=== PATIENT | female | born 1990 | race Caucasian/White ===

== ENCOUNTER 2017-05-07 09:30 | Inpatient (IN) | payer OTHER ==
[~2017-05-07] VITALS: Ht 149.9 cm; Wt 80.7 kg
[2017-05-13] MEDS ORDERED: PRENATAL TABLE1 EAC1 PO (07:05)
== END 2017-05-15 16:02 | disposition home or self-care (01) | DRG 766 ==
LOC: LDR 05-13 05:13 → O/R 05-13 17:50 → SURG-SUITE 05-13 18:52 → OB/GYN 05-20 09:30
PROVIDERS: Obstetrics & Gynecology
PROC: 4A1HXCZ Monitoring of Products of Conception, Cardiac Rate, External Approach (ICD-10-PCS; 2017-05-13)
PROC: 4A033R1 Measurement of Arterial Saturation, Peripheral, Percutaneous Approach (ICD-10-PCS; 2017-05-13)
PROC: 10D00Z1 Extraction of Products of Conception, Low, Open Approach (ICD-10-PCS; principal; 2017-05-13 17:00)
DX: O62.1 Secondary uterine inertia (principal); Z37.0 Single live birth; Z3A.39 39 weeks gestation of pregnancy

== ENCOUNTER 2020-11-01 09:30 | Inpatient (IN) | payer OTHER ==
[~2020-11-01] VITALS: Ht 149.9 cm; Wt 3.2 kg
[~2020-11-01 09:30] MED LIST: PRENATAL TABLE1 EAC1 PO
[2020-11-07] MEDS ORDERED: FOLIC ACID1 MG (11:36)
== END 2020-11-09 18:22 | disposition home or self-care (01) | DRG 785 ==
LOC: SURG-SUITE 11-07 07:14 → O/R 11-07 07:14 → OB/GYN 11-07 09:30 → SURG-SUITE 11-07 12:03 → OB/GYN 11-07 18:00 → SURG-SUITE 11-09 18:22
PROVIDERS: ADMIT Obstetrics & Gynecology; ATTEND Obstetrics & Gynecology
PROC: 0UB70ZZ Excision of Bilateral Fallopian Tubes, Open Approach (ICD-10-PCS; 2020-11-07)
PROC: 4A1HXFZ Monitoring of Products of Conception, Cardiac Rhythm, External Approach (ICD-10-PCS; 2020-11-07)
PROC: 10D00Z1 Extraction of Products of Conception, Low, Open Approach (ICD-10-PCS; principal; 2020-11-07 18:00)
DX: O34.211 Maternal care for low transverse scar from previous cesarean delivery (principal); Z30.2 Encounter for sterilization; Z37.0 Single live birth; Z3A.39 39 weeks gestation of pregnancy